=== PATIENT | female | born 1985 | race Caucasian/White ===

== ENCOUNTER → 2016-08-02 | Outpatient (CLI) | payer OTHER ==
[~2016-08-02] MED LIST: ESTR2TAB PO
[2016-08-02 10:06] LABS: BASO % 0.4 %; BASO ABS # 0.02 K/uL (0-0.2); COMPLETE YES; EOS % 2.2 %; HEMATOCRIT 42.2 % (37-47); IG% 0.2 %; LYMPH % 41.3 %; LYMPH ABS # 1.91 K/uL (1.2-3.4); MEAN CELL VOLUME 87.6 fL (80-100); MEAN CORPUSCULAR HEMOGLOBIN 29.5 pg (25-34); MEAN CORPUSCULAR HGB CONC 33.6 g/dl (32-36); MEAN PLATELET VOLUME 11.9 fL (7.4-10.4); NEUT % 49.9 %; PLATELET COUNT 235 K/uL (130-400); RED BLOOD COUNT 4.82 M/uL (4.2-5.4); WHITE BLOOD COUNT 4.63 K/uL (4.8-10.8)
[2016-08-02 10:30] LABS: ALT/SGPT 23 U/L (12-78); AST/SGOT 15 U/L (15-37); BLOOD UREA NITROGEN 16 mg/dl (7-18); BUN/CREATININE RATIO 18.9 (10-20); CALCIUM 8.9 mg/dl (8.5-10.1); CARBON DIOXIDE 30 mmol/L (21-32); CHLORIDE 109 mmol/L (98-107); CREATININE 0.84 mg/dl (0.60-1.20); GLUCOSE 91 mg/dl (70-99); POTASSIUM 3.8 mmol/L (3.5-5.1); SODIUM 142 mmol/L (136-145)
[2016-08-02 10:41] LABS: ALB/GLOB RATIO 1.2 (0.9-2); ALKALINE PHOSPHATASE 121 U/L (45-117); C-REACTIVE PROTEIN 0.33 mg/dl (0-0.29); FERRITIN 38.4 ng/ml (8.0-388.0)
[2016-08-07 14:33] LABS: MICROSOMAL AB <1 IU/ML (<9); T3 REVERSE **TC 90963 18 ng/dL (8-25)
== END | disposition home or self-care (01) ==
LOC: C.LAB 09:10
PROVIDERS: ATTEND Chiropractor
DX: M79.1 Myalgia (principal)